=== PATIENT | female | born 1985 | race Caucasian/White ===

== ENCOUNTER 2022-11-29 13:25 | Inpatient (IN) | payer MEDICAID, OTHER ==
[~2022-11-29] VITALS: Ht 160 cm; Wt 95.5 kg
[2022-11-29 15:19] LABS: BASOPHILS % (AUTO) 0.5 % (0.0-2.0); EOSINOPHILS % (AUTO) 0 % (1.0-6.0); HEMATOCRIT 40.7 % (36-46); HEMOGLOBIN 13.4 g/dL (12.0-16.0); LYMPHOCYTES # (AUTO) 1.7 K/uL (1.0-4.8); LYMPHOCYTES % (AUTO) 13.8 % (22.0-44.0); MEAN CORPUSCULAR HEMOGLOBIN 27.8 pg (26.0-34.0); MEAN CORPUSCULAR VOLUME 84 fL (80-100); MONOCYTES # (AUTO) 0.8 K/uL (0.1-1.0); MONOCYTES % (AUTO) 6.8 % (2.0-9.0); NEUTROPHILS # (AUTO) 9.5 K/uL (1.8-7.7); NEUTROPHILS % (AUTO) 78.9 % (40.0-70.0); PLATELET COUNT (AUTO) 405 K/uL (150-450); RED BLOOD CELL COUNT(AUTO) 4.82 MIL/uL (4.00-5.20); RED CELL DISTRIBUTION WIDTH 12.9 % (11.5-14.5)
[2022-11-29 15:25] LABS: ANION GAP 6 mmol/L (8-16); CALCIUM, TOTAL 9.7 mg/dL (8.8-10.5); CARBON DIOXIDE 32 mmol/L (22-29); CHLORIDE 103 mmol/L (98-107); CREATININE 0.74 mg/dL (0.60-1.30); GLOMERULAR FILTR. RATE CALC > 60 mL/min (>60); GLUCOSE,RANDOM 128 mg/dL (70-110); POTASSIUM 4.7 mmol/L (3.5-5.1); SODIUM SERUM 141 mmol/L (136-145)
[2022-11-29 15:36] LABS: ALANINE AMINOTRANSFERASE 62 U/L (12-78); ALBUMIN 3.8 g/dL (3.4-5.0); ALKALINE PHOSPHATASE 58 U/L (46-116); ASPARTATE AMINOTRANSFERASE 24 U/L (15-37); BILIRUBIN,TOTAL 0.4 mg/dL (0.1-1.0); HCG,QUANTITATIVE 1 mIU/mL (0-6); TOTAL PROTEIN, SERUM 7.6 g/dL (6.4-8.2)
[2022-11-29 15:38] LABS: ACETAMINOPHEN < 2 mcg/mL (10-30)
[2022-11-29 16:01] LABS: SALICYLATE 0.6 mg/dL (2.8-20.0)
[2022-11-29 16:53] LABS: AMPHET/METH SCREEN,URINE NEGATIVE (NEGATIVE); BARBITURATE SCREEN, URINE NEGATIVE (NEGATIVE); BENZODIAZEPINES SCREEN,URINE POSITIVE (NEGATIVE); CANNABINOID SCREEN,URINE NEGATIVE (NEGATIVE); COCAINE SCREEN,URINE NEGATIVE (NEGATIVE); METHADONE SCREEN, URINE NEGATIVE (NEGATIVE); OPIATE SCREEN,URINE NEGATIVE (NEGATIVE); PHENCYCLIDINE SCREEN,URINE NEGATIVE (NEGATIVE)
[2022-11-29] MEDS ORDERED: ACETAMINOPHEN 500 MG TABLET PO ONE (17:30)
[2022-11-29] MEDS ORDERED: HALOPERIDOL 5 MG TABLET PO PRN (18:30)
[2022-11-29] MEDS ORDERED: ZOLPIDEM TARTRATE 10 MG TABLET PO PRN (18:30)
[2022-11-29 19:18] LABS: COVID AG,FIA SOURCE NASAL SWAB
[2022-11-29 23:30] VITALS: BP 114/69
[2022-11-30] MEDS ORDERED: PETROLATUM,WHITE 28 GM JELLY TP PRN (05:45)
[2022-11-30] MEDS ORDERED: LOPERAMIDE HCL 2 MG CAPSULE PO PRN (05:45)
[2022-11-30] MEDS ORDERED: BACITRACIN 28 GM OINTMENT TP PRN (05:45)
[2022-11-30] MEDS ORDERED: IBUPROFEN 600 MG TABLET PO PRN (05:45)
[2022-11-30] MEDS ORDERED: ACETAMINOPHEN 325 MG TABLET PO PRN (05:45)
[2022-11-30] MEDS ORDERED: MAGNESIUM HYDROXIDE SUSPENSION 30 ML UDCUP PO PRN (05:45)
[2022-11-30] MEDS ORDERED: CloNIDine HCL 0.1 MG TABLET PO PRN (05:45)
[2022-11-30] MEDS ORDERED: MAG HYDROX/AL HYDROX/SIMETH ES 30 ML SUSPENSION UDCUP PO PRN (05:45)
[2022-11-30] MEDS ORDERED: ONDANSETRON HCL 4 MG TABLET PO PRN (05:45)
[2022-11-30] MEDS ORDERED: DOCUSATE SODIUM 100 MG CAPSULE PO PRN (05:45)
[2022-11-30] MEDS ORDERED: OMEPRAZOLE 20 MG CAPSULE PO PRN (05:45)
[2022-11-30] MEDS ORDERED: ALBUTEROL SULFATE HFA 90 MCG/PUFF 8 GM INHALER IH PRN (05:45)
[2022-11-30 08:52] VITALS: BP 105/68
[2022-11-30] MEDS: LORazepam 2 MG TABLET PO PRN ×3 (09:00→20:53)
[2022-11-30 09:21] LABS: GLUCOMETER DEV NAME(LOC) 3E.C; GLUCOSE,POINT OF CARE 256 MG/DL (70-110)
[2022-11-30 09:27] VITALS: BP 105/68
[2022-11-30 12:06] LABS: GLUCOMETER DEV NAME(LOC) 3E.C; GLUCOSE,POINT OF CARE 126 MG/DL (70-110)
[2022-11-30] MEDS: OMEPRAZOLE 20 MG CAPSULE PO SCH (13:45)
[2022-11-30] MEDS: HYDROCHLOROTHIAZIDE 25 MG TABLET PO SCH (14:41)
[2022-11-30] MEDS: MetFORMIN HCL 850 MG TABLET PO SCH (16:37)
[2022-11-30 16:51] LABS: GLUCOMETER DEV NAME(LOC) 3E.C; GLUCOSE,POINT OF CARE 149 MG/DL (70-110)
[2022-11-30] MEDS ORDERED: CITALOPRAM HYDROBROMIDE 10 MG TABLET PO SCH (19:15)
[2022-11-30 21:05] VITALS: BP 127/81
[2022-11-30 23:50] LABS: GLUCOMETER DEV NAME(LOC) 3E.C; GLUCOSE,POINT OF CARE 161 MG/DL (70-110)
[2022-12-01 06:31] LABS: GLUCOMETER DEV NAME(LOC) 3E.C; GLUCOSE,POINT OF CARE 124 MG/DL (70-110)
[2022-12-01] MEDS: MetFORMIN HCL 850 MG TABLET PO SCH (07:10)
[2022-12-01] MEDS: HYDROCHLOROTHIAZIDE 25 MG TABLET PO SCH (08:20)
[2022-12-01] MEDS: OMEPRAZOLE 20 MG CAPSULE PO SCH (08:23)
[2022-12-01] MEDS: LORazepam 2 MG TABLET PO PRN (08:26)
[2022-12-01 09:19] VITALS: BP 147/96
[2022-12-01 11:26] LABS: GLUCOMETER DEV NAME(LOC) 3E.C; GLUCOSE,POINT OF CARE 103 MG/DL (70-110)
[2022-12-01] MEDS ORDERED: CITA10TA99 PO (12:09)
[2022-12-01] MEDS ORDERED: HYDR25TA2 PO (12:14)
[2022-12-01] MEDS ORDERED: METF-1185 PO (12:14)
[2022-12-01] MEDS ORDERED: OMEP20 PO (12:14)
[2022-12-01] MEDS ORDERED: CITALOPRAM HYDROBROMIDE 10 MG TABLET PO SCH (21:00)
== END 2022-12-01 15:25 | disposition home or self-care (01) | DRG 753 ==
LOC: EMS 13:48 → 3EI 22:00
PROVIDERS: ADMIT Psychiatry & Neurology Psychiatry; ATTEND Psychiatry & Neurology Psychiatry
DX: F31.9 Bipolar disorder, unspecified (principal); E66.9 Obesity, unspecified; F10.129 Alcohol abuse with intoxication, unspecified; F41.9 Anxiety disorder, unspecified; G47.00 Insomnia, unspecified; Z20.822 Contact with and (suspected) exposure to COVID-19; G89.29 Other chronic pain; T42.4X2A Poisoning by benzodiazepines, intentional self-harm, initial encounter; I10 Essential (primary) hypertension; K59.00 Constipation, unspecified; M54.50 Low back pain, unspecified; Z90.49 Acquired absence of other specified parts of digestive tract; Z98.891 History of uterine scar from previous surgery; Y92.89 Other specified places as the place of occurrence of the external cause; Z88.0 Allergy status to penicillin; Z88.8 Allergy status to other drugs, medicaments and biological substances; Z68.37 Body mass index [BMI] 37.0-37.9, adult
CPT/HCPCS: 71045; 80053; 80307; 82962; 84702; 85025; 93005; 99285; G0480; G0481; 36415-L1; 36415-TC